=== PATIENT | female | born 1975 | race African-American/Black ===

== ENCOUNTER 2022-06-06 08:50 | Emergency (ER) | payer MEDICARE, MEDICAID ==
[~2022-06-06] VITALS: Ht 162.6 cm; Wt 100.0 kg
[2022-06-06 09:08] VITALS: BP 153/95
[2022-06-06] MEDS ORDERED: TRIA15CR62 TOP (10:39)
== END 2022-06-06 11:36 | disposition home or self-care (01) ==
LOC: ER 08:52
DX: L29.9 Pruritus, unspecified (principal); M25.561 Pain in right knee; R50.9 Fever, unspecified; E11.9 Type 2 diabetes mellitus without complications; F31.9 Bipolar disorder, unspecified; I10 Essential (primary) hypertension; Z88.0 Allergy status to penicillin; Z88.1 Allergy status to other antibiotic agents; Z91.013 Allergy to seafood
CPT/HCPCS: 99283

== ENCOUNTER 2022-06-09 13:54 | Emergency (ER) | payer MEDICARE, MEDICAID ==
[~2022-06-09] VITALS: Ht 162.6 cm; Wt 73.0 kg
[~2022-06-09 13:54] MED LIST: TRIA15CR62 TOP
[2022-06-09 14:43] VITALS: BP 167/104
[2022-06-09] MEDS ORDERED: ketoconazole 2% cream 15gm TP STA (16:09)
[2022-06-09] MEDS ORDERED: bacitracin 15gm ointment TP ONE (16:10)
[2022-06-09] MEDS ORDERED: acetaminophen 325mg tablet PO ONE (16:10)
[2022-06-09] MEDS ORDERED: EMOL250L TP (16:15)
[2022-06-09] MEDS ORDERED: ACET-1008 PO (16:15)
== END 2022-06-09 16:38 | disposition home or self-care (01) ==
LOC: ER 13:55
DX: S80.211A Abrasion, right knee, initial encounter (principal); L85.3 Xerosis cutis; I10 Essential (primary) hypertension; E11.9 Type 2 diabetes mellitus without complications; F31.9 Bipolar disorder, unspecified; Z88.0 Allergy status to penicillin; Z91.013 Allergy to seafood; Z79.899 Other long term (current) drug therapy; X58.XXXA Exposure to other specified factors, initial encounter; Y93.89 Activity, other specified; Y92.89 Other specified places as the place of occurrence of the external cause; Y99.8 Other external cause status
CPT/HCPCS: 99284